=== PATIENT | male | born 2000 | race Hispanic/Latino ===

== ENCOUNTER 2023-05-08 08:52 | Emergency (ER) | payer OTHER ==
[~2023-05-08] VITALS: Ht 180.3 cm; Wt 81.0 kg
[2023-05-08] MEDS ORDERED: PANT40TA29 PO (09:10)
[2023-05-08 09:45] LABS: BASO % 0.7 % (0.0-1.0); EOS # 0.1 10^3/uL (0.0-0.5); EOS % 1.1 % (0.0-3.0); HEMATOCRIT 42.7 % (42.0-52.0); HEMOGLOBIN 13.6 g/dl (13.5-17.5); LYMPH # 1.7 10^3/uL (1.5-5.0); MEAN CORPUSCULAR HEMOGLOBIN 26.7 pg (27.0-33.0); MEAN CORPUSCULAR HGB CONC 31.9 g/dl (32.0-36.5); MEAN CORPUSCULAR VOLUME 83.9 fl (80.0-96.0); MONO # 0.3 10^3/uL (0.0-0.8); NEUTROPHILS # 2.3 10^3/uL (1.5-8.5); PLATELET COUNT, AUTOMATED 219 10^3/uL (150-450); RED BLOOD COUNT 5.09 10^6/uL (4.30-6.10); WHITE BLOOD COUNT 4.4 10^3/uL (4.0-10.0)
[2023-05-08 10:10] LABS: AMYLASE 82 U/L (30-118)
[2023-05-08 10:11] LABS: ALBUMIN 4.2 G/DL (3.2-5.2); ALKALINE PHOSPHATASE 44 U/L (46-116); ALT/SGPT 14 U/L (7.0-40); AST/SGOT 11 U/L (<34); BILIRUBIN,DIRECT 0.1 MG/DL (<0.4); BILIRUBIN,TOTAL 0.4 MG/DL (0.3-1.2); BLOOD UREA NITROGEN 13 MG/DL (9-23); CALCIUM LEVEL 9.4 MG/DL (8.5-10.1); CARBON DIOXIDE LEVEL 30 MMOL/L (20-31); CHLORIDE LEVEL 105 MMOL/L (98-107); GLOMERULAR FILTRATION RATE > 60.0 (>60); GLUCOSE, FASTING 55 MG/DL (60-100); POTASSIUM SERUM 4.2 MMOL/L (3.5-5.1); SODIUM LEVEL 141 MMOL/L (136-145); TOTAL PROTEIN 6.9 G/DL (5.7-8.2)
[2023-05-08] MEDS ORDERED: PANTOPRAZOLE 40MG VIAL IV ONE (12:15)
[2023-05-08] MEDS ORDERED: NS 1,000 ML IV ONE (12:15)
[2023-05-08] MEDS: GASTROGRAFIN SOLUTION 30ML PO SCH ×3 (12:40→13:22)
[2023-05-08 12:55] LABS: INR 1.1; PROTHROMBIN TIME 13.9 SECONDS (12.5-14.5)
[2023-05-08 12:56] LABS: PARTIAL THROMBOPLASTIN TIME 29.3 SECONDS (24.8-34.2)
[2023-05-08 13:07] LABS: LIPASE 38 U/L (12-53)
[2023-05-08 13:08] LABS: C REACTIVE PROTEIN QUANTITATIV < 0.40 MG/DL (<1.0)
[2023-05-08] MEDS ORDERED: ISOVUE-370 76% 100ML VIAL As Ordered ONE (14:25)
[2023-05-08] MEDS ORDERED: CARA1TAB6 PO (15:56)
[2023-05-08 16:08] VITALS: BP 126/80; TEMP 97.1; O2SAT 99
== END 2023-05-08 16:11 | disposition home or self-care (01) ==
LOC: M ED 08:52
DX: K29.70 Gastritis, unspecified, without bleeding (principal); Z79.810 Long term (current) use of selective estrogen receptor modulators (SERMs); Z79.899 Other long term (current) drug therapy
CPT/HCPCS: 74177; 80047; 80048; 80076; 82150; 83690; 85025; 85610; 85652; 85730; 86140; 86850; 86900; 86901; 99284; C9113; Q9963; Q9967

== ENCOUNTER → 2023-05-09 | Outpatient (REF) | payer OTHER ==
[~2023-05-09] MED LIST: CARA1TAB6 PO; PANT40TA29 PO
== END ==
LOC: M LAB REF 10:05
PROVIDERS: ATTEND Physician Assistant Medical
DX: R19.7 Diarrhea, unspecified (principal)

== ENCOUNTER → 2023-07-23 | Outpatient (CLI) | payer OTHER | LOC: M LAB 15:07 | DX: Z53.9 Procedure and treatment not carried out, unspecified reason (principal) ==

== ENCOUNTER → 2023-07-23 | Outpatient (REF) | payer OTHER | LOC: M LAB REF 15:09 | PROVIDERS: ATTEND Nurse Practitioner Family | DX: R19.7 Diarrhea, unspecified (principal) | CPT/HCPCS: 82656; 83630; 83993; 87177; 87338; 87507; G0463 ==

== ENCOUNTER → 2023-10-11 | Day surgery (SDC) | payer OTHER ==
[~2023-10-11] VITALS: Ht 180.3 cm; Wt 76.4 kg
[~2023-10-11] MED LIST changes: +PANT20TA6 PO; +propofoL 200 MG/20 ML VIAL As Ordered ONE
[2023-10-11] MEDS: NS 1,000 ML IV ONE (08:01)
[2023-10-11 10:18] VITALS: TEMP 97.2
[2023-10-11 10:35] VITALS: BP 125/74; O2SAT 100
== END | disposition home or self-care (01) ==
LOC: M OPP 07:43
PROVIDERS: ATTEND Internal Medicine Gastroenterology
DX: K51.419 Inflammatory polyps of colon with unspecified complications (principal); K64.4 Residual hemorrhoidal skin tags; K64.8 Other hemorrhoids; K92.1 Melena; Z79.899 Other long term (current) drug therapy

== ENCOUNTER → 2023-11-09 | Outpatient (CLI) | payer OTHER ==
[~2023-11-09] MED LIST changes: -propofoL 200 MG/20 ML VIAL As Ordered ONE
[2023-11-09 11:43] LABS: BLOOD UREA NITROGEN 12 MG/DL (9-23); CREATININE FOR GFR 0.79 MG/DL (0.70-1.30); GLOMERULAR FILTRATION RATE > 60.0 (>60)
== END ==
LOC: M LAB 10:38
PROVIDERS: ATTEND Nurse Practitioner Family
DX: K86.81 Exocrine pancreatic insufficiency (principal)

== ENCOUNTER → 2023-11-15 | Outpatient (CLI) | payer OTHER | LOC: M PLARAD 10:41 | PROVIDERS: ATTEND Nurse Practitioner Family | DX: K86.81 Exocrine pancreatic insufficiency (principal); K76.0 Fatty (change of) liver, not elsewhere classified ==

== ENCOUNTER → 2024-02-18 | Outpatient (CLI) | payer OTHER | LOC: M LAB 16:02 | PROVIDERS: ATTEND Nurse Practitioner Family | DX: K86.81 Exocrine pancreatic insufficiency (principal) ==

== ENCOUNTER 2025-06-04 07:02 | Day surgery (SDC) | payer OTHER ==
[~2025-06-04] VITALS: Ht 182.9 cm; Wt 80.3 kg
[~2025-06-04 07:02] MED LIST changes: +CREO3600 PO
[2025-06-04] MEDS ORDERED: LIDOCAINE 2% 100 MG/5 ML SDV (FOR ANES.) ONE (07:03)
[2025-06-04 08:01] VITALS: TEMP 98.1
[2025-06-04 08:19] VITALS: BP 130/60; O2SAT 98
== END 2025-06-04 08:32 | disposition home or self-care (01) ==
LOC: M OPP 07:02
PROVIDERS: ATTEND Internal Medicine Gastroenterology
DX: K92.1 Melena (principal); Z79.899 Other long term (current) drug therapy